=== PATIENT | female | born 1940 | race Asian ===

== ENCOUNTER 2022-06-29 20:44 | Emergency (ER) | payer MEDICAID ==
[~2022-06-29] VITALS: Ht 149.9 cm; Wt 61.2 kg
[2022-06-29 20:49] VITALS: BP_SYST 156
--- NOTE | 2022-06-29 21:04 | NUR ---
Placed in room 01 . Placed on television production technician, blood pressure machine and pulse oximeter. To gown for exam. Side rails up. Report given to Katarzyna NORTON.
[2022-06-29] MEDS ORDERED: LIP20 PO (21:07)
[2022-06-29] MEDS ORDERED: METO25TA3 PO (21:07)
[2022-06-29] MEDS ORDERED: ISOS60TA71 PO (21:07)
[2022-06-29] MEDS ORDERED: CALC-1263 PO (21:07)
[2022-06-29] MEDS ORDERED: FAMO20TA8 PO (21:07)
[2022-06-29] MEDS ORDERED: ASA81 PO (21:07)
--- NOTE | 2022-06-29 21:07 | NUR ---
Medication reconciliation completed with information provided by patient. Any prior medication reconciliation on file was reviewed and corrected.
--- NOTE | 2022-06-29 21:45 | NUR ---
Dr. Henriquez at bedside examining the patient.
[2022-06-29 22:02] LABS: BASOPHILS % (AUTO) 0.3 % (0.0-2.0); EOSINOPHILS % (AUTO) 0.5 % (0.0-4.0); HEMATOCRIT 39.4 % (36-48); HEMOGLOBIN 13.6 g/dL (12.0-16.0); LYMPHOCYTES # (AUTO) 1.6 K/uL (1.0-5.5); LYMPHOCYTES % (AUTO) 14.9 % (20.5-51.5); MEAN CORPUSCULAR HEMOGLOBIN 32 pg (27-31); MEAN CORPUSCULAR HGB CONC 35 % (32-36); MEAN CORPUSCULAR VOLUME 92 fL (79.0-98.0); MONOCYTES # (AUTO) 0.9 K/uL (0.0-1.0); MONOCYTES % (AUTO) 8.3 % (1.7-9.3); PLATELET COUNT (AUTO) 204 K/uL (130-430); RED BLOOD CELL COUNT(AUTO) 4.29 MIL/uL (4.2-6.2); RED CELL DISTRIBUTION WIDTH 12.4 % (9.0-15.0); WHITE BLOOD COUNT (AUTO) 10.5 K/uL (4.8-10.8)
--- NOTE | 2022-06-29 22:08 | NUR ---
Patient is back from CT.
[2022-06-29 22:23] LABS: ALANINE AMINOTRANSFERASE 38 U/L (12-78); ALBUMIN 3.9 g/dL (3.4-4.8); ANION GAP 7 (5-15); ASPARTATE AMINOTRANSFERASE 26 U/L (10-37); CALCIUM 8.9 mg/dL (8.4-11.0); CHLORIDE 103 mmol/L (98-107); CREATININE 0.97 mg/dL (0.55-1.30); GLUCOSE 111 mg/dL (70-99); TOTAL BILIRUBIN 0.5 mg/dL (0.0-1.0); UREA NITROGEN, BLOOD 20 mg/dL (8-21)
[2022-06-29 22:32] LABS: LIPASE 168 U/L (73-393); THYROID STIMULATING HORMONE 1.64 uIu/mL (0.36-3.74)
[2022-06-30 00:30] LABS: BILIRUBIN,URINE NEGATIVE (NEGATIVE); BLOOD, URINE NEGATIVE (NEGATIVE); CLARITY/URINE CLEAR (CLEAR); COLOR,URINE YELLOW (YELLOW); GLUCOSE,URINE NEGATIVE (NEGATIVE); KETONES,URINE NEGATIVE (NEGATIVE); LEUKOCYTE ESTERASE ,URINE TRACE (NEGATIVE); NITRITE, URINE NEGATIVE (NEGATIVE); PH,URINE 7.5 (5.0-8.0); PROTEIN URINE NEGATIVE (NEGATIVE); UROBILINOGEN,URINE 0.2 (0.2-1.0)
[2022-06-30 01:38] VITALS: BP_SYST 170
[2022-06-30 07:41] LABS: RBC,URINE 0-3 /HPF (0-3)
[2022-06-30 07:43] LABS: BACTERIA,URINE FEW /HPF (None Seen); MUCUS,URINE None Seen /LPF (None Seen)
== END 2022-06-30 01:39 | disposition home or self-care (01) ==
LOC: SED 20:44
DX: R07.9 Chest pain, unspecified (principal); R00.2 Palpitations; R42 Dizziness and giddiness; R51.9 Headache, unspecified; R06.02 Shortness of breath; E78.5 Hyperlipidemia, unspecified; I10 Essential (primary) hypertension; Z79.899 Other long term (current) drug therapy; Z20.822 Contact with and (suspected) exposure to COVID-19
CPT/HCPCS: 36415; 70450-TC; 71045; 76376; 80053; 81000; 82550; 83690; 83880; 84443; 84484; 85025; 87040; 87086; 93005; 99285

== ENCOUNTER 2023-06-02 16:08 | Emergency (ER) | payer MEDICAID, OTHER ==
[~2023-06-02] VITALS: Ht 152.4 cm; Wt 59.0 kg
[~2023-06-02 16:08] MED LIST: ASA81 PO; CALC-1263 PO; FAMO20TA8 PO; ISOS60TA71 PO; LIP20 PO; METO25TA3 PO
[2023-06-02 16:10] VITALS: BP_SYST 126; PULSE 74; RESP 18; TEMP 97.9; O2SAT 97
[2023-06-02 17:19] LABS: BASOPHILS % (AUTO) 0.6 % (0.0-2.0); EOSINOPHILS # (AUTO) 0.1 K/uL (0.0-0.4); EOSINOPHILS % (AUTO) 0.9 % (0.0-4.0); HEMATOCRIT 36.2 % (36-48); HEMOGLOBIN 12.7 g/dL (12.0-16.0); LYMPHOCYTES # (AUTO) 2.1 K/uL (1.0-5.5); LYMPHOCYTES % (AUTO) 31.1 % (20.5-51.5); MEAN CORPUSCULAR HEMOGLOBIN 33 pg (27-31); MEAN CORPUSCULAR HGB CONC 35 % (32-36); MEAN CORPUSCULAR VOLUME 94 fL (79.0-98.0); MONOCYTES # (AUTO) 0.6 K/uL (0.0-1.0); MONOCYTES % (AUTO) 9.2 % (1.7-9.3); NEUTROPHILS % (AUTO) 58.2 % (40.0-70.0); PLATELET COUNT (AUTO) 222 K/uL (130-430); RED BLOOD CELL COUNT(AUTO) 3.86 MIL/uL (4.2-6.2); RED CELL DISTRIBUTION WIDTH 12.9 % (9.0-15.0); WHITE BLOOD COUNT (AUTO) 6.8 K/uL (4.8-10.8)
[2023-06-02 17:54] LABS: ANION GAP 7 (5-15); CARBON DIOXIDE 27 mmol/L (23-29); CHLORIDE 110 mmol/L (98-107); CREATININE 0.95 mg/dL (0.55-1.30); GLUCOSE 102 mg/dL (74-106); POTASSIUM 3.9 mmol/L (3.5-5.1); SODIUM SERUM 144 mmol/L (136-145); UREA NITROGEN, BLOOD 24 mg/dL (8-21)
[2023-06-02 19:31] LABS: BILIRUBIN,URINE NEGATIVE (NEGATIVE); BLOOD, URINE NEGATIVE (NEGATIVE); CLARITY/URINE CLEAR (CLEAR); COLOR,URINE YELLOW (YELLOW); GLUCOSE,URINE NEGATIVE (NEGATIVE); KETONES,URINE NEGATIVE (NEGATIVE); LEUKOCYTE ESTERASE ,URINE 1+ (NEGATIVE); NITRITE, URINE NEGATIVE (NEGATIVE); PROTEIN URINE NEGATIVE (NEGATIVE); UROBILINOGEN,URINE 0.2 (0.2-1.0)
[2023-06-02] MEDS: NACL 0.9% 1,000 ML IV ONE ×2 (19:53→21:39)
[2023-06-02] MEDS: PANTOPRAZOLE SODIUM 40 MG/VIAL (PROTONIX) IVP ONE (19:53)
[2023-06-02 20:18] LABS: BACTERIA,URINE FEW /HPF (None Seen); MUCUS,URINE None Seen /LPF (None Seen); RBC,URINE NONE SEEN /HPF (0-3)
[2023-06-02] MEDS ORDERED: ONDA-8 TL (21:35)
[2023-06-02] MEDS ORDERED: cefTRIAXone 1 GM VIAL ONE (21:35)
[2023-06-02] MEDS ORDERED: OMEP20CA15 PO (21:35)
[2023-06-02] MEDS ORDERED: SULF1TAB48 PO (21:35)
[2023-06-02] MEDS: cefTRIAXone 1 GM in D5W 50 ML IV ONE (21:39)
[2023-06-02 22:50] VITALS: BP_SYST 153; PULSE 75; RESP 16; TEMP 97.7; O2SAT 95
== END 2023-06-02 22:50 | disposition home or self-care (01) ==
LOC: SED 16:08
DX: N39.0 Urinary tract infection, site not specified (principal); E86.0 Dehydration; R53.1 Weakness; R10.13 Epigastric pain; I10 Essential (primary) hypertension; E78.5 Hyperlipidemia, unspecified; Z79.899 Other long term (current) drug therapy
CPT/HCPCS: 99285; 96365; 71045; 96361; 96375; 80048; 81001; 83880; 85025; 87086; 84484; 36415; 93005; 81000; 81015; J0696; C9113; J7030